=== PATIENT | male | born 1940 | race African-American/Black ===

== ENCOUNTER 2018-02-02 15:02 | Inpatient (IN) ==
[2018-02-02] MEDS ORDERED: MethylPREDNISolone Sod Succinate Inj 125 MG/2 ML Vial IV.PUSH ONE (15:13)
--- NOTE | 2018-02-02 15:16 | ED ---
HPI General Chief complaint: Respiratory Symptoms Stated complaint: asthma/trouble breathing Time Seen by Provider: 02/02/18 15:12 Source: patient Mode of arrival: ambulatory Limitations: no limitations History of Present Illness HPI narrative: 77-year-old male patient with history of COPD presents to the ER today because of shortness of breath and coughing over last few days, chest discomfort which is not going away. He denies any fevers, vomiting, diarrhea, abdominal pains, or other issues. He has been using his nebulizers but is not improving his symptoms. Related Data Home Medications Medication Instructions Recorded Confirmed albuterol sulfate 0.63 mg INHALATION QID PRN 02/02/18 02/02/18 apixaban [Eliquis] mg PO BID 02/02/18 budesonide-formoterol [Symbicort] 2 puff INHALATION BID 02/02/18 02/02/18 codeine-guaifenesin [Cheratussin 10 ml PO Q4-6H 02/02/18 02/02/18 AC] hydrochlorothiazide mg PO DAILY 02/02/18 levofloxacin mg PO DAILY 02/02/18 montelukast [Singulair] 10 mg PO QPM 02/02/18 02/02/18 Allergies Allergy/AdvReac Type Severity Reaction Status Date / Time acetaminophen [From Tylox] Allergy Mild Itching Verified 02/02/18 15:13 oxycodone [From Tylox] Allergy Mild Itching Verified 02/02/18 15:13 Penicillins Allergy Mild rash Verified 02/02/18 15:13 Review of Systems ROS: all other systems reviewed are negative PMFSH History History Provided By: Patient Medical History Medical History Abnormal heart rhythm (Acute) COPD (chronic obstructive pulmonary disease) (Acute) HTN (hypertension) (Acute) Surgical History Surgical History H/O knee surgery (Acute) Previous back surgery (Acute) S/P cholecystectomy (Acute) S/P tonsillectomy and adenoidectomy (Acute) Social History Social History Second Hand Smoke Exposure: No Smoking Status: Never smoker How Often Do You Have a Drink Containing Alcohol: Never Recent Travel in [facility] within the Last 8 Weeks: No Recent Out of Country Travel within the Last 8 Weeks: No Exam Narrative Exam Narrative: GENERAL: Well-developed elderly -[place]er male patient currently in mild respiratory distress. Awake and oriented x3. SKIN: Focused skin assessment warm/dry. HEAD: Atraumatic. Normocephalic. EYES: Pupils equal and round. No scleral icterus. No injection or drainage. ENT: No nasal bleeding or discharge. Mucous membranes pink and moist. NECK: Trachea midline. No JVD. CARDIOVASCULAR: Regular rate and rhythm. No murmur appreciated. RESPIRATORY: Mild bilateral wheezing accessory muscle use. Bilateral wheezing. Breath sounds equal bilaterally. GASTROINTESTINAL: Abdomen soft, non-tender, nondistended. Hepatic and splenic margins not palpable. MUSCULOSKELETAL: No obvious deformities. No clubbing. No cyanosis. No edema. NEUROLOGICAL: Awake and alert. No obvious cranial nerve deficits. Motor grossly within normal limits. Normal speech. PSYCHIATRIC: Appropriate mood and affect; insight and judgment normal. Course Initial Documented Vital Signs Temperature 98.4 F 02/02/18 15:23 Pulse Rate 126 H 02/02/18 15:23 Respiratory Rate 22 02/02/18 15:23 Blood Pressure 167/118 H 02/02/18 15:23 Pulse Oximetry 90 L 02/02/18 15:23 Last Documented Vital Signs Temperature 98.4 F 02/02/18 15:23 Pulse Rate 109 H 02/02/18 15:43 Respiratory Rate 28 H 02/02/18 15:43 Blood Pressure 148/78 H 02/02/18 15:43 Pulse Oximetry 94 L 02/02/18 15:43 Medical Decision Making MDM Narrative Medical decision making narrative: Patient has been on p.o. antibiotics and not improving, chest x-ray showing a left lower lobe pneumonia. He was given Solu- Medrol and nebulizers in the ER with mild improvements in breathing but still is wheezing quite a bit on reevaluation at 4 PM. At this point, additional nebulizers have been ordered. His potassium is low and p.o. potassium was given. Cultures have been drawn. At this point, my plan would be to admit him for further treatment. Case was discussed with Dr. Boyce for admission. Medical Screen Exam Complete: Yes Emergency Medical Condition: Yes Differential Diagnosis Differential Diagnosis: Bronchitis versus COPD exacerbation versus pneumonia Medical Records Medical records reviewed: Yes I reviewed the patient's medical records. Lab Data Lab results reviewed: Yes I reviewed the patient's lab results. Result diagrams: 02/02/18 15:20 02/02/18 15:20 Lab Results 02/02/18 02/02/18 02/02/18 Range/Units 15:20 15:20 15:20 CBC w Diff Auto diff final WBC 9.7 (4.0-11.0) th/mm3 RBC 4.52 (4.50-5.90) mil/mm3 Hgb 13.9 (13.0-17.0) gm/dL Hct 41.7 (39.0-51.0) % MCV 92.3 (80.0-100.0) fL MCH 30.8 (27.0-34.0) pg MCHC 33.4 (32.0-36.0) % RDW 14.6 (11.6-17.2) % Plt Count 258 (150-450) th/mm3 MPV 8.7 (7.0-11.0) fL Neut % (Auto) 63.7 (16.0-70.0) % Lymph % (Auto) 12.3 (9.0-44.0) % [place] % (Auto) 8.9 H (0.0-8.0) % Eos % (Auto) 13.2 H (0.0-4.0) % Baso % (Auto) 1.9 (0.0-2.0) % Neut # (Auto) 6.1 (1.8-7.7) th/mm3 Lymph # (Auto) 1.2 (1.0-4.8) th/mm3 [place] # (Auto) 0.9 (0.0-0.9) th/mm3 Eos # (Auto) 1.3 H (0.0-0.4) th/mm3 Baso # (Auto) 0.2 (0.0-0.2) th/mm3 WBC Differential . Differential Comment . Sodium 141 (136-145) meq/L Potassium 3.0 L (3.5-5.1) meq/L Chloride 102 (98-107) meq/L Carbon Dioxide 29.9 (21.0-32.0) meq/L Anion Gap 9 (5-15) meq/L BUN 15 (7-18) mg/dL Creatinine 1.40 H (0.60-1.30) mg/dL Estimated GFR 49 L (>89) mL/min Random Glucose 110 H (74-106) mg/dL Calcium 9.3 (8.5-10.1) mg/dL Total Bilirubin 0.9 (0.2-1.0) mg/dL AST 32 (15-37) U/L ALT 31 (12-78) U/L Alkaline Phosphatase 93 (45-117) U/L Troponin I 0.03 (0.02-0.05) ng/mL B-Natriuretic Peptide 6 (0-100) pg/mL Total Protein 8.1 (6.4-8.2) g/dL Albumin 3.5 (3.4-5.0) g/dL Imaging Data Attestation: I personally reviewed and interpreted this imaging study as follows : Radiologist's impression: Chest X-Ray 02/02/18 15:13 CONCLUSION: Left basilar airspace disease. Discharge Plan Discharge Disposition Patient Disposition: 30 Still Patient Discharge Condition Condition: Fair Discharge Details Anticipated Discharge Date: 02/02/18 Diagnosis: Pneumonia, COPD exacerbation Physicians Team ED Provider: Emmett Contreras Primary Care Provider: UNKNOWN, Rxs /Orders / Referrals /Forms Prescriptions: No Action albuterol sulfate 0.63 mg/3 mL Solution For Nebulization 0.63 mg INHALATION QID PRN (Reason: SOB) RF: 0 montelukast [Singulair] 10 mg Tablet 10 mg PO QPM RF: 0 codeine-guaifenesin [Cheratussin AC] 10-100 mg/5 mL Liquid 10 ml PO Q4-6H RF: 0 levofloxacin 500 mg Tablet PO DAILY RF: 0 hydrochlorothiazide 12.5 mg Tablet PO DAILY RF: 0 budesonide-formoterol [Symbicort] 160-4.5 mcg/actuation Hfa Aerosol Inhaler 2 puff INHALATION BID RF: 0 apixaban [Eliquis] 5 mg Tablet PO BID RF: 0 Discharge Interventions Interventions: Vital Signs Last Done: 02/02/18 15:43 Status ED Status: With Doctor
[2018-02-02 15:43] LABS: Baso # (Auto) 0.2 th/mm3 (0.0-0.2); Baso % (Auto) 1.9 % (0.0-2.0); Eos # (Auto) 1.3 th/mm3 (0.0-0.4); Eos % (Auto) 13.2 % (0.0-4.0); Hematocrit 41.7 % (39.0-51.0); Hemoglobin 13.9 gm/dL (13.0-17.0); Lymph # (Auto) 1.2 th/mm3 (1.0-4.8); Lymph % (Auto) 12.3 % (9.0-44.0); Mean Corpuscular HGB Conc 33.4 % (32.0-36.0); Mean Corpuscular Hemoglobin 30.8 pg (27.0-34.0); Mean Corpuscular Volume 92.3 fL (80.0-100.0); Mean Platelet Volume 8.7 fL (7.0-11.0); Mono # (Auto) 0.9 th/mm3 (0.0-0.9); Mono % (Auto) 8.9 % (0.0-8.0); Neut # (Auto) 6.1 th/mm3 (1.8-7.7); Neut % (Auto) 63.7 % (16.0-70.0); Platelet Count 258 th/mm3 (150-450); Red Blood Count 4.52 mil/mm3 (4.50-5.90); Red Cell Distribution Width 14.6 % (11.6-17.2); White Blood Count 9.7 th/mm3 (4.0-11.0)
[2018-02-02 15:51] LABS: Chloride 102 meq/L (98-107); Sodium 141 meq/L (136-145)
[2018-02-02 15:54] LABS: Calcium 9.3 mg/dL (8.5-10.1)
[2018-02-02 15:55] LABS: Albumin 3.5 g/dL (3.4-5.0); Anion Gap 9 meq/L (5-15); Blood Urea Nitrogen 15 mg/dL (7-18); Carbon Dioxide 29.9 meq/L (21.0-32.0); Glucose,Random 110 mg/dL (74-106)
[2018-02-02 15:58] LABS: Alanine Aminotransferase 31 U/L (12-78); Aspartate Aminotransferase 32 U/L (15-37); Glomerular Filtration Rate 49 mL/min (>89)
[2018-02-02 16:00] LABS: Total Protein 8.1 g/dL (6.4-8.2)
[2018-02-02 16:01] LABS: Alkaline Phosphatase 93 U/L (45-117)
[2018-02-02 16:03] LABS: Troponin I 0.03 ng/mL (0.02-0.05)
--- NOTE | 2018-02-02 16:09 | XR ---
EXAM DATE: 02/02/2018 3:48 PM EST AGE/SEX: 77 years / Male INDICATIONS: Short of breath, cough, chest pains CLINICAL DATA: This is the patient's initial encounter. Patient reports that signs and symptoms have been present for 1 week and indicates a pain score of 3/10. MEDICAL/SURGICAL HISTORY: None. None. COMPARISON: No prior exams available for comparison. FINDINGS: Focal airspace disease is identified in the left lung base. Right lung is clear. Heart and mediastinal structures are unremarkable. CONCLUSION: Left basilar airspace disease. Electronically signed by: Steven Owusu MD 02/02/2018 4:08 PM EST
[2018-02-02] MEDS ORDERED: Potassium Chloride 25 MEQ Effervescent Tablet PO ONE (16:11)
[2018-02-02] MEDS ORDERED: Azithromycin Inj 500 MG in Sodium Chlor 0.9% Inj 250 ML IV.SIG ONE (16:13)
[2018-02-02] MEDS ORDERED: Potassium Bicarbonate 25 MEQ Effervescent Tablet PO ONE (16:37)
[2018-02-02] MEDS ORDERED: Bisacodyl 10 MG Supp RECTAL PRN (16:43)
[2018-02-02] MEDS ORDERED: Sod Chloride 0.9% Inj 1,000 ML IV.CONT SCH (16:45)
[2018-02-02] MEDS ORDERED: Heparin - SQ 10,000 UNITS/ML Vial SQ SCH (16:45)
[2018-02-02] MEDS: Montelukast 10 MG Tablet PO SCH (18:37)
[2018-02-02] MEDS: Aztreonam Inj 2 GM in Sodium Chloride 0.9% Inj 100 ML IV.SIG SCH (18:37)
[2018-02-02] MEDS: Senna/Docusate Sodium 8.6/50 MG Tablet PO SCH (20:35)
[2018-02-02] MEDS: guaiFENesin 600 MG ER Tablet PO SCH (20:35)
[2018-02-02] MEDS: MethylPREDNISolone Sod Succinate Inj 125 MG/2 ML Vial IV.PUSH SCH (20:36)
[2018-02-02] MEDS: Budesonide-Formoterol 160/4.5 MCG 6 GM Inhaler INH SCH (21:00)
[2018-02-03] MEDS: Aztreonam Inj 2 GM in Sodium Chloride 0.9% Inj 100 ML IV.SIG SCH ×3 (02:31→17:39)
[2018-02-03] MEDS: MethylPREDNISolone Sod Succinate Inj 125 MG/2 ML Vial IV.PUSH SCH ×4 (02:32→22:01)
[2018-02-03 05:56] LABS: Potassium 3.5 meq/L (3.5-5.1)
[2018-02-03 05:58] LABS: Calcium 9.2 mg/dL (8.5-10.1)
[2018-02-03 05:59] LABS: Carbon Dioxide 27.4 meq/L (21.0-32.0)
[2018-02-03] MEDS ORDERED: Azithromycin Inj 250 MG in Sodium Chlor 0.9% Inj 250 ML IV.SIG SCH ×2 (08:00→11:00)
[2018-02-03] MEDS: Benzonatate 100 MG Capsule PO PRN ×2 (09:25→17:48)
[2018-02-03] MEDS: guaiFENesin 600 MG ER Tablet PO SCH ×2 (09:25→22:00)
[2018-02-03] MEDS: Senna/Docusate Sodium 8.6/50 MG Tablet PO SCH ×2 (09:26→22:02)
[2018-02-03] MEDS: Budesonide-Formoterol 160/4.5 MCG 6 GM Inhaler INH SCH ×2 (09:40→22:03)
[2018-02-03 11:17] LABS: Bilirubin,Urine Negative (Negative); Clarity,Urine Clear (Clear); Color,Urine Yellow (Yellw/Straw); Glucose,Urine (UA) Negative (Negative); Leukocyte Esterase,Urine Negative (Negative); Nitrite,Urine Negative (Negative); Specific Gravity,Urine 1.025 (1.002-1.035); Urobilinogen,Urine 0.2 mg/dL (Less than 2)
[2018-02-03 11:26] LABS: Hyaline Casts,Urine 0-2 /lpf (0-3); Squamous Epithelial Cell,Urine 0-5 /hpf (0-5)
--- NOTE | 2018-02-03 12:24 | P.HP ---
History of Present Illness Primary Care Physician: UNKNOWN Chief Complaint: Shortness of breath History of Present Illness: This is a 77-year-old male with a history of asthma, sleep apnea on CPAP, atrial fibrillation on Eliquis and hypertension. Patient presents to the emergency room because of shortness of breath for the past several days which started while he was still in [place]. His pulmonary doctor prescribed Levaquin and symptoms continued to get worse with wheezing, productive cough with whitish phlegm, pleuritic chest pain when he coughs and sore throat. Denies fever, chills, diarrhea and UTI symptoms. Patient allergic to penicillin so was started on aztreonam and azithromycin. Chest x-ray independently reviewed by me shows left base pneumonia. Today patient states he feels better. He is on 3 L nasal cannula. Inpatient Certification: I certify that the inpatient services were ordered in accordance with Medicare regulations governing the order. This includes certification that hospital inpatient services are reasonable and necessary and in the case of services not specified as inpatient-only under 42 CFR 419.22(n), that they are appropriately provided as inpatient services in accordance to with the 2-midnight benchmark under 43 CFR 412.3(e) Estimated Total Length of Stay (Days): 2 Plans for Post Hospital Care: Not yet determined Review of Systems All other systems reviewed negative except as stated [facility] - History History Provided By: Patient - Medical History Medical History: Medical History (Last Reviewed 02/03/18 @ 12:18 by Marques Boyce MD) Abnormal heart rhythm COPD (chronic obstructive pulmonary disease) HTN (hypertension) - Surgical History Surgical History: Surgical History (Last Reviewed 02/03/18 @ 12:18 by Marques Boyce MD) H/O knee surgery Previous back surgery S/P cholecystectomy S/P tonsillectomy and adenoidectomy - Family History Family History: Family History (Last Updated 02/03/18 @ 12:18 by Marques Boyce MD) Other No pertinent family history - Social History I have reviewed the patient's Social History: Yes - Tobacco History Second Hand Smoke Exposure: No Tobacco Use In Past 30 Days: No Smoking Status: Never smoker - Alcohol History How Often Do You Have a Drink Containing Alcohol: Never - Substance Use History Substance History: No History of Abuse - Travel History Recent Travel in the [place] Within the Last 8 Weeks: No Recent Travel Out of the Country Within the Last 8 Weeks: No - Immunization History Tetanus Immunization: Unsure Medications and Allergies Active Medications: Active Medications Albuterol (Duoneb Neb (Olivia)) 1 ampul NEB QID NEB [facility] Last Admin: 02/03/18 11:47 Dose: 1 ampul Albuterol (Albuterol Neb (Prn)) 2.5 mg NEB Q2HR NEB PRN PRN Reason: SHORTNESS OF BREATH Last Admin: 02/02/18 23:30 Dose: 2.5 mg Apixaban (Eliquis) 5 mg PO BID [facility] Last Admin: 02/03/18 09:21 Dose: 5 mg Benzonatate (Tessalon Perles) 200 mg PO Q8H PRN PRN Reason: COUGH Last Admin: 02/03/18 09:25 Dose: 200 mg Bisacodyl (Dulcolax Supp) 10 mg RECTAL DAILY PRN PRN Reason: SEVERE CONSITIPATION Budesonide/Formoterol Fumarate (Symbicort 160/4.5 Mcg Inh) 2 puff INH BID [facility] Last Admin: 02/03/18 09:40 Dose: 2 puff Guaifenesin (Mucinex Er) 600 mg PO BID [facility] Last Admin: 02/03/18 09:25 Dose: 600 mg Aztreonam 2 gm/ Sodium (Chloride) 100 mls @ 200 mls/hr IV.SIG Q8H [facility] Last Infusion: 02/03/18 11:02 Dose: Infused Azithromycin 250 mg/ Sodium (Chloride) 250 mls @ 250 mls/hr IV.SIG Q24H [facility] Last Admin: 02/03/18 11:15 Dose: 250 mls/hr Lactulose (Lactulose Liq) 30 ml PO DAILY PRN PRN Reason: SEVERE CONSITIPATION Methylprednisolone Sodium Succinate (Solumedrol Inj) 60 mg IV.PUSH Q6H [facility] Last Admin: 02/03/18 09:26 Dose: 60 mg Montelukast Sodium (Singulair) 10 mg PO QPM [facility] Last Admin: 02/02/18 18:37 Dose: 10 mg Ondansetron HCl (Zofran Inj) 4 mg IV.PUSH Q6H PRN PRN Reason: NAUSEA OR VOMITING Last Admin: 02/02/18 17:10 Dose: 4 mg Senna/Docusate Sodium (Hodan-Colace) 1 tab PO BID [facility] Last Admin: 02/03/18 09:26 Dose: Not Given Sennosides (Senokot) 17.2 mg PO Q12H PRN PRN Reason: Moderate Constipation Sodium Chloride (Ns Flush) 2 ml IV.FLUSH BID [facility] Last Admin: 02/03/18 09:27 Dose: 2 ml Sodium Chloride (Ns Flush) 2 ml IV.FLUSH PRN PRN PRN Reason: FLUSH AFTER USING IV ACCESS Allergies Allergy/AdvReac Type Severity Reaction Status Date / Time acetaminophen [From Tylox] Allergy Mild Itching Verified 02/02/18 15:13 oxycodone [From Tylox] Allergy Mild Itching Verified 02/02/18 15:13 Penicillins Allergy Mild rash Verified 02/02/18 15:13 Home Medications Medication Instructions Recorded Confirmed Type albuterol sulfate 0.63 mg INHALATION QID PRN 02/02/18 02/02/18 History apixaban [Eliquis] mg PO BID 02/02/18 History budesonide-formoterol [Symbicort] 2 puff INHALATION BID 02/02/18 02/02/18 History codeine-guaifenesin [Cheratussin 10 ml PO Q4-6H 02/02/18 02/02/18 History AC] hydrochlorothiazide mg PO DAILY 02/02/18 History levofloxacin mg PO DAILY 02/02/18 History montelukast [Singulair] 10 mg PO QPM 02/02/18 02/02/18 History Exam Vital signs: Vital Signs 02/02/18 15:23 02/02/18 15:26 02/02/18 15:43 Temperature 98.4 F Pulse Rate 126 H 93 H 109 H Respiratory Rate 22 36 H 28 H Blood Pressure 167/118 H 148/78 H Pulse Oximetry 93 L 97 94 L 02/02/18 16:26 02/02/18 16:58 02/02/18 18:38 Temperature 98 F Pulse Rate 97 H 102 H 92 H Respiratory Rate 28 H 28 H 20 Blood Pressure 143/85 H 129/67 Pulse Oximetry 94 L 97 02/02/18 20:00 02/02/18 20:16 02/02/18 23:30 Temperature 98.7 F Pulse Rate 83 81 69 Respiratory Rate 18 24 20 Blood Pressure 167/78 H Pulse Oximetry 95 96 02/03/18 00:00 02/03/18 04:00 02/03/18 07:25 Temperature 97.5 F L 96.5 F L Pulse Rate 89 74 Respiratory Rate 18 18 Blood Pressure 136/88 144/75 H Pulse Oximetry 98 95 97 02/03/18 07:30 02/03/18 08:00 02/03/18 11:41 Temperature 98.1 F 98.0 F Pulse Rate 110 H 110 H 78 Respiratory Rate 16 22 20 Blood Pressure 147/90 H 165/77 H Pulse Oximetry 92 L 97 02/03/18 11:48 Temperature Pulse Rate 69 Respiratory Rate 16 Blood Pressure Pulse Oximetry Intake & Output 02/02/18 02/03/18 02/03/18 18:59 06:59 18:59 Intake Total 250 / 250 1400 / 1400 100 / 100 Output Total 250 / 250 Balance 250 / 250 1150 / 1150 100 / 100 Weight 110 kg 110.5 kg Intake: IV 250 / 250 1200 / 1200 100 / 100 NS Inj 1,000 ML @ 100 mls/hr IV 1000 / 1000 .CONT .Q10H OLIVIA Rx#:[id number] Azithromycin Inj 500 MG In NS 250 / 250 Inj 250 ML @ 250 mls/hr IV.SIG ONCE ONE Rx#:[id number] Azactam Inj 2 GM In NS Inj 100 200 / 200 100 / 100 ML @ 200 mls/hr IV.SIG Q8H OLIVIA Rx#:[id number] Oral 200 / 200 Output: Urine 250 / 250 Other: Date of Last Bowel Movement 02/02/18 Weight On Admission 110 kg Narrative: GENERAL: Well-developed, well-nourished in no distress on nasal cannula SKIN: Warm and dry. HEAD: Atraumatic. Normocephalic. EYES: Pupils equal and round. No scleral icterus. No injection or drainage. ENT: No nasal bleeding or discharge. Mucous membranes pink and moist. Clear throat NECK: Trachea midline. No JVD. CARDIOVASCULAR: Regular rate and rhythm. RESPIRATORY: No accessory muscle use. Bilateral expiratory wheezes breath sounds equal bilaterally. GASTROINTESTINAL: Abdomen soft, non-tender, nondistended. MUSCULOSKELETAL: Extremities without clubbing, cyanosis, or edema. No obvious deformities. NEUROLOGICAL: Awake and alert. No obvious cranial nerve deficits. Motor grossly within normal limits. Five out of 5 muscle strength in the arms and legs. Normal speech. PSYCHIATRIC: Appropriate mood and affect; insight and judgment normal. Results - Labs CBC & Chem 7: 02/02/18 15:20 02/03/18 04:45 Labs: Laboratory Results - last 24 hr 02/02/18 02/02/18 02/02/18 15:20 15:20 15:20 CBC w Diff Auto diff final WBC 9.7 RBC 4.52 Hgb 13.9 Hct 41.7 MCV 92.3 MCH 30.8 MCHC 33.4 RDW 14.6 Plt Count 258 MPV 8.7 Neut % (Auto) 63.7 Lymph % (Auto) 12.3 [place] % (Auto) 8.9 H Eos % (Auto) 13.2 H Baso % (Auto) 1.9 Neut # (Auto) 6.1 Lymph # (Auto) 1.2 [place] # (Auto) 0.9 Eos # (Auto) 1.3 H Baso # (Auto) 0.2 WBC Differential . Differential Comment . Sodium 141 Potassium 3.0 L Chloride 102 Carbon Dioxide 29.9 Anion Gap 9 BUN 15 Creatinine 1.40 H Estimated GFR 49 L Random Glucose 110 H Calcium 9.3 Magnesium Total Bilirubin 0.9 AST 32 ALT 31 Alkaline Phosphatase 93 Troponin I 0.03 B-Natriuretic Peptide 6 Total Protein 8.1 Albumin 3.5 Ur Collection Type Urine Color Urine Clarity Urine pH Ur Specific [place] Urine Protein Urine Glucose (UA) Urine Ketones Urine Occult Blood Urine Nitrate Urine Bilirubin Urine Urobilinogen Ur Leukocyte Esterase Ur Squamous Epith Cells Hyaline Casts Micro UA Comment Ur Microscopic Review Urine Culture Comments 02/02/18 02/03/18 02/03/18 15:20 04:45 09:15 CBC w Diff WBC RBC Hgb Hct MCV MCH MCHC RDW Plt Count MPV Neut % (Auto) Lymph % (Auto) [place] % (Auto) Eos % (Auto) Baso % (Auto) Neut # (Auto) Lymph # (Auto) [place] # (Auto) Eos # (Auto) Baso # (Auto) WBC Differential Differential Comment Sodium 140 Potassium 3.5 Chloride 103 Carbon Dioxide 27.4 Anion Gap 10 BUN 19 H Creatinine 1.40 H Estimated GFR 60 L Random Glucose 179 H Calcium 9.2 Magnesium 2.1 Total Bilirubin AST ALT Alkaline Phosphatase Troponin I B-Natriuretic Peptide Total Protein Albumin Ur Collection Type Clean catch Urine Color Yellow Urine Clarity Clear Urine pH 6.0 Ur Specific [place] 1.025 Urine Protein Trace Urine Glucose (UA) Negative Urine Ketones Trace H Urine Occult Blood Negative Urine Nitrate Negative Urine Bilirubin Negative Urine Urobilinogen 0.2 Ur Leukocyte Esterase Negative Ur Squamous Epith Cells 0-5 Hyaline Casts 0-2 Micro UA Comment Culture not ind Ur Microscopic Review Microscopic reviewed Urine Culture Comments Culture not ind - Imaging Impressions Chest X-Ray 02/02/18 15:13 CONCLUSION: Left basilar airspace disease. Caprini VTE Risk Assessment Caprini VTE Risk Assessment: Moderate/High Risk (score >= 2) Caprini Risk Assessment Model: Point Value = 1 Point Value = 2 Point Value = 3 Point Value = 5 Age 41-60 Minor surgery BMI > 25 kg/m2 Swollen legs Varicose veins or History of unexplained or recurrent spontaneous Oral contraceptives or hormone replacement Sepsis (< 1 month) Serious lung disease, including pneumonia (< 1 month) Abnormal pulmonary function Acute myocardial infarction Congestive heart failure (< 1 month) History of inflammatory bowel disease Medical patient at bed rest Age 61-74 Arthroscopic surgery Major open surgery (> 45 min) Laparoscopic surgery (> 45 min) Malignancy Confined to bed (> 72 hours) Immobilizing plaster cast Central venous access Age >= 75 History of VTE Family history of VTE Factor V Leiden Prothrombin [id number] Lupus anticoagulant Anticardiolipin antibodies Elevated serum homocysteine Heparin-induced thrombocytopenia Other congenital or acquired thrombophilia Stroke (< 1 month) Elective arthroplasty Hip, pelvis, or leg fracture Acute spinal cord injury (< 1 month) Prophylaxis Regimen: Total Risk Factor Score Risk Level Prophylaxis Regimen 0-1 Low Early ambulation 2 Moderate Order ONE of the following: *Sequential Compression Device (SCD) *Heparin 5000 units SQ BID 3-4 Higher Order ONE of the following medications: *Heparin 5000 units SQ TID *Enoxaparin/Lovenox 40 mg SQ daily (WT < 150 kg, CrCl > 30 mL/min) *Enoxaparin/Lovenox 30 mg SQ daily (WT < 150 kg, CrCl > 10-29 mL/min) *Enoxaparin/Lovenox 30 mg SQ BID (WT < 150 kg, CrCl > 30 mL/min) AND/OR *Sequential Compression Device (SCD) 5 or more Highest Order ONE of the following medications: *Heparin 5000 units SQ TID (Preferred with Epidurals) *Enoxaparin/Lovenox 40 mg SQ daily (WT < 150 kg, CrCl > 30 mL/min) *Enoxaparin/Lovenox 30 mg SQ daily (WT < 150 kg, CrCl > 10-29 mL/min) *Enoxaparin/Lovenox 30 mg SQ BID (WT < 150 kg, CrCl > 30 mL/min) AND *Sequential Compression Device (SCD) Assessment and Plan - Plan This is a 77-year-old male with a history of asthma, sleep apnea on CPAP, atrial fibrillation on Eliquis and hypertension. He presents with shortness of breath with wheezing, productive cough, pleuritic chest pain and sore throat. He has been taking Levaquin prior to admission. Chest x-ray shows left base pneumonia. He is allergic to penicillin Pneumonia with failed outpatient therapy. He has sepsis. Continue aztreonam and Zithromax. Follow-up cultures. Repeat chest x-ray in 6 weeks Asthma exacerbation. Still actively wheezing but not in distress. Continue nebulization, IV steroids and oxygen to keep saturation at least 92%. Increase activity Acute kidney injury with hypokalemia. Urinalysis unremarkable. Potassium has been replaced. There is no acidosis. Patient already received IV hydration overnight. Continue to hold hydrochlorothiazide and repeat BMP in the morning DVT prophylaxis with SCD and Eliquis Discharge Planning: Discharge when clinically improved may be in 1-2-day
[2018-02-03 13:31] LABS: CKMB Percent 1.5 % (0.0-4.0); Creatine Kinase MB 6.2 ng/mL (0.5-3.6)
[2018-02-03] MEDS: Montelukast 10 MG Tablet PO SCH (17:48)
--- NOTE | 2018-02-03 21:28 | ECG ---
Date Performed: 02/02/2018 Time Performed: 16:47:18 PTAGE: 77 years EKG: ATRIAL FIBRILLATION WITH RAPID VENTRICULAR RESPONSE NONSPECIFIC ST & T-WAVE ABNORMALITY ABN ORMAL RHYTHM ECG NO PREVIOUS TRACING DOCTOR: Tawanna Lawrence Interpretating Date/Time 02/03/2018 21:26:07
[2018-02-04] MEDS: MethylPREDNISolone Sod Succinate Inj 125 MG/2 ML Vial IV.PUSH SCH ×2 (02:45→08:28)
[2018-02-04] MEDS: Aztreonam Inj 2 GM in Sodium Chloride 0.9% Inj 100 ML IV.SIG SCH ×2 (02:46→10:36)
[2018-02-04] MEDS: Benzonatate 100 MG Capsule PO PRN (03:17)
[2018-02-04 06:59] LABS: Potassium 3.4 meq/L (3.5-5.1)
--- NOTE | 2018-02-04 08:08 | P.PN ---
Subjective Interval history: Follow up for pneumonia. Patient is currently resting in bed. No fever, chills. Overall, he feels better but continues to have significant cough. He is currently on room air. Tolerating diet well. Physical Exam Vital signs: Vital Signs 02/03/18 10:19 02/03/18 11:41 02/03/18 11:48 Temperature 98.0 F Pulse Rate 80 78 69 Respiratory Rate 20 16 Blood Pressure 165/77 H Pulse Oximetry 97 02/03/18 12:00 02/03/18 15:58 02/03/18 16:00 Temperature 97.7 F Pulse Rate 70 69 72 Respiratory Rate 15 20 Blood Pressure 124/75 Pulse Oximetry 98 02/03/18 20:00 02/03/18 20:05 02/03/18 22:50 Temperature 97.7 F Pulse Rate 77 97 H 76 Respiratory Rate 18 22 18 Blood Pressure 152/70 H Pulse Oximetry 95 97 02/04/18 00:00 02/04/18 03:45 02/04/18 04:00 Temperature 97.2 F L 96.5 F L Pulse Rate 96 H 71 72 Respiratory Rate 18 22 18 Blood Pressure 147/73 H 145/72 H Pulse Oximetry 94 L 97 02/04/18 07:19 Temperature Pulse Rate 79 Respiratory Rate 20 Blood Pressure Pulse Oximetry 91 L Intake & Output 02/03/18 02/04/18 02/04/18 18:59 06:59 18:59 Intake Total 450 / 450 350 / 350 Output Total 650 / 650 Balance 450 / 450 -300 / -300 Weight 114.1 kg Intake: IV 450 / 450 100 / 100 Azithromycin Inj 250 MG In NS 250 / 250 Inj 250 ML @ 250 mls/hr IV.SIG Q24H ABHIJIT Rx#:[id number] Azactam Inj 2 GM In NS Inj 100 200 / 200 100 / 100 ML @ 200 mls/hr IV.SIG Q8H ABHIJIT Rx#:[id number] Oral 250 / 250 Output: Urine 650 / 650 Other: # Voids 4 # Bowel Movements 3 Narrative: GENERAL: Alert, NAD. SKIN: Warm and dry. HEAD: Normocephalic. EYES: No scleral icterus. No injection or drainage. NECK: Supple, trachea midline. No JVD or lymphadenopathy. CARDIOVASCULAR: Regular rate and rhythm without murmurs, gallops, or rubs. RESPIRATORY: Moderate air entry, diffusely coarse breath sound throughout the posterior lung espino with minor wheezing. GASTROINTESTINAL: Abdomen soft, non-tender, nondistended. MUSCULOSKELETAL: No cyanosis, or edema. BACK: Nontender without obvious deformity. No CVA tenderness. Results - Labs CBC & Chem 7: 02/02/18 15:20 02/04/18 05:18 Laboratory Results - last 24 hr 02/03/18 02/03/18 02/04/18 04:45 09:15 05:18 Sodium 141 Potassium 3.4 L Chloride 103 Carbon Dioxide 29.0 Anion Gap 9 BUN 21 H Creatinine 1.20 Estimated GFR 72 L Random Glucose 155 H Calcium 9.0 Total Creatine Kinase 422 H CK-MB (CK-2) 6.2 H CK-MB (CK-2) % 1.5 Ur Collection Type Clean catch Urine Color Yellow Urine Clarity Clear Urine pH 6.0 Ur Specific [place] 1.025 Urine Protein Trace Urine Glucose (UA) Negative Urine Ketones Trace H Urine Occult Blood Negative Urine Nitrate Negative Urine Bilirubin Negative Urine Urobilinogen 0.2 Ur Leukocyte Esterase Negative Ur Squamous Epith Cells 0-5 Hyaline Casts 0-2 Micro UA Comment Culture not ind Ur Microscopic Review Microscopic reviewed Urine Culture Comments Culture not ind Microbiology 02/03/18 09:15 Urine - Clean Catch Urine Streptococcus pneumoniae Antigen ( M - Final Presumptive negative for streptococcus pneumoniae antigen, suggesting no current or recent infection. Infection due to Streptococcus pneumoniae cannot be ruled out since the antigen present in the sample may be below the detection limit of the test. 02/03/18 09:15 Urine - Clean Catch Urine Legionella Antigen - Final Presumptive negative for Legionella pneumophila serogroup 1 antigen in urine, suggesting no recent or recurrent infection. Infection due to Legionella cannot be ruled out since other serogroups and species may cause disease, antigen may not be present in urine in early infection, and the level of antigen present in the urine may be below the detection limit of the test. 02/02/18 16:50 Blood - Peripheral Aerobic Blood Culture - Preliminary No growth in 1 day 02/02/18 16:50 Blood - Peripheral Anaerobic Blood Culture - Preliminary No growth in 1 day 02/02/18 16:55 Blood - Peripheral Aerobic Blood Culture - Preliminary No growth in 1 day 02/02/18 16:55 Blood - Peripheral Anaerobic Blood Culture - Preliminary No growth in 1 day - Imaging Chest X-Ray 02/02/18 15:13 CONCLUSION: Left basilar airspace disease. Assessment and Plan - Plan Mr. Mccray is a pleasant 77-year-old -Citizen Of [place] male from [place] with a history of asthma, sleep apnea on CPAP, atrial fibrillation, hypertension who was admitted to the hospital due to dyspnea on 02/03/2018. He was treated in the outpatient setting with Levaquin for possible pneumonia. However his symptoms did not improve which prompted him to seek medical attention at [place] emergency department. Upon admission he was started on aztreonam and azithromycin. Chest x-ray showed left basilar pneumonia. Community Acquired Pneumonia Failed outpatient therapy with Levaquin. Continue aztreonam and azithromycin but increase azithromycin to 500 mg daily. Patient is currently on room air. Walk test reveals his O2 saturation was above 91%. Due to physical finding of diffuse coarse breath sound, will obtain CT chest with IV contrast. Discontinue Solu-Medrol and start prednisone 20 mg twice daily. Discontinue albuterol nebulizer treatment and start DuoNeb scheduled and as needed. Acute kidney injury Hypokalemia Creatinine improved to 1.22. Potassium replaced. Magnesium 2.1. History of atrial fibrillation - rate controlled. Currently on Apixaban. Full code. Apixaban. Discharge plan: Possible d/c this afternoon or tomorrow.
[2018-02-04] MEDS: guaiFENesin 600 MG ER Tablet PO SCH (08:28)
[2018-02-04] MEDS: Budesonide-Formoterol 160/4.5 MCG 6 GM Inhaler INH SCH (08:29)
[2018-02-04] MEDS: Senna/Docusate Sodium 8.6/50 MG Tablet PO SCH (08:36)
[2018-02-04] MEDS ORDERED: Azithromycin 250 MG Tablet PO SCH (09:00)
--- NOTE | 2018-02-04 09:18 | CT ---
EXAM DATE: 02/04/2018 9:07 AM EST AGE/SEX: 77 years / Male INDICATIONS: Pneumonia. Cough. Previous exposure to asbestos. Abnormal chest x-ray with focal airspa ce disease in the left lung base. CLINICAL DATA: This is the patient's initial encounter. Patient reports that signs and symptoms have been present for 1 week and indicates a pain score of 0/10. MEDICAL/SURGICAL HISTORY: Chronic obstructive pulmonary disease. Hypertension. Cholecystectomy. T onsillectomy. Knee surgery. Back surgery. RADIATION DOSE: 23.49 CTDI (mGy) ; Patient body habitus COMPARISON: [facility], CHEST 1V SINGLE AP, 02/02/2018. . TECHNIQUE: Multiple contiguous axial images were obtained through the chest during bolus infusion of 65 ml Omnipaque 350 (iohexol) nonionic water-soluble contrast as a single exam dose. Images were obtained in suspended respiration using multiple row detector helical technique. Using automated exp osure control and adjustment of the mA and/or kV according to patient size, radiation dose was kept a s low as reasonably achievable to obtain optimal diagnostic quality images. DICOM format image data is available electronically for review and comparison. FINDINGS: Lungs: There is mild elevation of the left hemidiaphragm. There is consolidation in the posterior le ft lower lobe with several air bronchograms. The right lung is except for minimal scarring or atelect asis in the posterior lung base. Mediastinum: There is good visualization of the great vessels of the middle mediastinum. No evidenc e of mediastinal or hilar adenopathy/mass. Coronary artery calcifications are present. There is no pe ricardial effusion. Pleurae: No evidence of focal thickening or pleural effusion. Axillae: Unremarkable. Bony Structures: Unremarkable. Miscellaneous: The examination was extended to include the upper abdomen, and visualized portions of the adrenal glands are normal in size and configuration. There is a small low-attenuation lesion in the right lobe of the liver too small to categorize but likely represents a small cyst or cavernous h emangioma. CONCLUSION: 1. Mild elevation of the left hemidiaphragm with mild consolidation in the posterior left lower lobe which could represent pneumonia. 2. Coronary artery calcifications. 3. Small low-attenuation lesion in the right lobe of the liver too small to characterize but likely represents a small cyst or cavernous hemangioma. Electronically signed by: Parveen Francis MD 02/04/2018 9:16 AM EST
[2018-02-04] MEDS ORDERED: predniSONE 20 MG Tablet PO SCH (09:30)
== END 2018-02-04 13:30 | disposition home or self-care (01) ==
LOC: PHED 15:02 → PHEDA 16:21 → PH3 17:43
PROVIDERS: ADMIT Hospitalist; ATTEND Hospitalist

== ENCOUNTER 2018-03-26 19:17 | Observation (INO) ==
[2018-03-26] MEDS ORDERED: MethylPREDNISolone Sod Succinate Inj 125 MG/2 ML Vial IV.PUSH ONE (19:25)
--- NOTE | 2018-03-26 19:29 | ED ---
HPI General Chief Complaint: Shortness of Breath/Dyspnea Stated Complaint: SOB Time Seen by Provider: 03/26/18 19:24 Source: patient and family () Mode of arrival: ambulatory Limitations: no limitations History of Present Illness MD Complaint: Reports shortness of breath, cough and "asthma attack"; Denies pain with inspiration and chest pain Onset (ago): hour(s) Context: Reports recent travel (here since December from [place]); Denies recent illness, occurred during exertion, choking/aspiration, medication noncompliance and allergen exposure Severity: moderate Consistency/Duration: constant Relieving factors: nothing Exacerbating factors: exertion, movement, coughing and talking Known history of: Reports COPD and asthma; Denies congestive heart failure, diabetes, recurrent pneumonia (recent admission [facility] 02/02/18 for exacerbation COPD and pneumonia), aspiration pneumonia, HIV, PE, DVT and IVDU Associated symptoms: Reports cough and wheezing; Denies chest pain, pain with inspiration, fever, sputum production, orthopnea, lower extremity pain, polyuria , polydipsia, paresthesias, palpitations, carpopedal spasm, hemoptysis, diaphoresis, nausea/vomiting, syncope, abdominal pain, rash, sense of impending doom, chest congestion, dizziness and lightheadedness Treatment prior to arrival: Reports none Related Data Home oxygen amount: none Home Medications Medication Instructions Recorded Confirmed albuterol sulfate 0.63 mg INHALATION QID PRN 02/02/18 03/26/18 apixaban [Eliquis] 5 mg PO BID 02/02/18 03/26/18 budesonide-formoterol [Symbicort] 2 puff INHALATION BID 02/02/18 03/26/18 Allergies Allergy/AdvReac Type Severity Reaction Status Date / Time acetaminophen [From Tylox] Allergy Mild Itching Verified 03/26/18 19:44 oxycodone [From Tylox] Allergy Mild Itching Verified 03/26/18 19:44 Penicillins Allergy Mild rash Verified 03/26/18 19:44 Review of Systems ROS: all other systems reviewed are negative [facility] Medical History Medical History Abnormal heart rhythm (Acute) COPD (chronic obstructive pulmonary disease) (Acute) HTN (hypertension) (Acute) Surgical History Surgical History H/O knee surgery (Acute) Previous back surgery (Acute) S/P cholecystectomy (Acute) S/P tonsillectomy and adenoidectomy (Acute) Family History Family History Other No pertinent family history Social History Social History Substance History: No History of Abuse Second Hand Smoke Exposure: No Smoking Status: Never smoker How Often Do You Have a Drink Containing Alcohol: Never Recent Out of Country Travel within the Last 8 Weeks: No Exam Narrative Exam Narrative: GENERAL: Well-nourished, well-developed patient. SKIN: Focused skin assessment warm/dry. HEAD: Normocephalic. EYES: No scleral icterus. No injection or drainage. NECK: Supple, trachea midline. No JVD or lymphadenopathy. CARDIOVASCULAR: Regular rate and rhythm without murmurs, gallops, or rubs. RESPIRATORY: Breath sounds equal bilaterally no rhonchi with few expiratory wheezes. No accessory muscle use. GASTROINTESTINAL: Abdomen soft, non-tender, nondistended. MUSCULOSKELETAL: No cyanosis, or edema (B)lower leg and pedal edema 1+. BACK: Nontender without obvious deformity. No CVA tenderness. Course Initial Documented Vital Signs Temperature 98.4 F 03/26/18 19:20 Pulse Rate 73 03/26/18 19:20 Respiratory Rate 26 H 03/26/18 19:20 Blood Pressure 171/100 H 03/26/18 19:20 Pulse Oximetry 93 L 03/26/18 19:20 Last Documented Vital Signs Temperature 98.4 F 03/26/18 19:20 Pulse Rate 79 03/27/18 00:04 Respiratory Rate 20 03/26/18 23:19 Blood Pressure 158/74 H 03/27/18 00:04 Pulse Oximetry 98 03/26/18 20:11 Medical Decision Making MDM Narrative Medical decision making narrative: 77-year-old male presents with shortness of breath over the past several hours placed on environmental monitoring specialist with continuous pulse oximetry IV access obtained specimens collected and sent for resulting patient administered DuoNeb updraft x3 along with administration of Solu-Medrol. Patient some better after DuoNeb updrafts however patient continues to have work of breathing and wheezing and trial of exertion patient D compensates with desaturation to 87% therefore patient be admitted for exacerbation of COPD bronchitis. Patient's case discussed with medicine service for admission to Dr. Contreras service as observation. Medical Screen Exam Complete: Yes Emergency Medical Condition: Yes Medical Records Medical records reviewed: Yes I reviewed the patient's medical records. Lab Data Result diagrams: 03/26/18 19:38 03/26/18 19:38 Lab Results 03/26/18 03/26/18 03/26/18 Range/Units 19:38 19:38 19:38 CBC w Diff Auto diff final WBC 6.4 (4.0-11.0) th/mm3 RBC 4.06 L (4.50-5.90) mil/mm3 Hgb 12.5 L (13.0-17.0) gm/dL Hct 38.2 L (39.0-51.0) % MCV 94.0 (80.0-100.0) fL MCH 30.7 (27.0-34.0) pg MCHC 32.6 (32.0-36.0) % RDW 14.6 (11.6-17.2) % Plt Count 215 (150-450) th/mm3 MPV 9.0 (7.0-11.0) fL Neut % (Auto) 56.3 (16.0-70.0) % Lymph % (Auto) 21.9 (9.0-44.0) % [place] % (Auto) 7.6 (0.0-8.0) % Eos % (Auto) 12.1 H (0.0-4.0) % Baso % (Auto) 2.1 H (0.0-2.0) % Neut # (Auto) 3.6 (1.8-7.7) th/mm3 Lymph # (Auto) 1.4 (1.0-4.8) th/mm3 [place] # (Auto) 0.5 (0.0-0.9) th/mm3 Eos # (Auto) 0.8 H (0.0-0.4) th/mm3 Baso # (Auto) 0.1 (0.0-0.2) th/mm3 WBC Differential . Differential Comment . Sodium 143 (136-145) meq/L Potassium 4.3 (3.5-5.1) meq/L Chloride 109 H (98-107) meq/L Carbon Dioxide 27.0 (21.0-32.0) meq/L Anion Gap 7 (5-15) meq/L BUN 13 (7-18) mg/dL Creatinine 2.10 H (0.60-1.30) mg/dL Estimated GFR 38 L (>89) mL/min Random Glucose 108 H (74-106) mg/dL Calcium 8.7 (8.5-10.1) mg/dL Total Bilirubin 0.4 (0.2-1.0) mg/dL AST 42 H (15-37) U/L ALT 31 (12-78) U/L Alkaline Phosphatase 74 (45-117) U/L Troponin I Less than 0.02 L (0.02-0.05) ng/mL B-Natriuretic Peptide 152 H (0-100) pg/mL Total Protein 7.1 (6.4-8.2) g/dL Albumin 3.1 L (3.4-5.0) g/dL Imaging Data Radiologist's impression: Chest X-Ray 03/26/18 19:24 CONCLUSION: The lungs are clear. Interval resolution of left lower lung infiltrate. ECG Data EKG Prior to Arrival: No Attestation: I personally reviewed and interpreted this ECG as follows: (EKG: Atrial fibrillation flutter with controlled ventricular rate no acute ST elevation injury pattern or ectopy noted) Discharge Plan Discharge Disposition Patient Disposition: ED Admit(ED Internal Use Only) Discharge Condition Condition: Stable Discharge Order Discharge Orders: ED Use Only Admit Order (Routine); Ordered 03/26/18 Ordered By: Sherly Contreras Discharge Details Diagnosis: COPD exacerbation Physicians Team ED Provider: Sherly Contreras Primary Care Provider: UNKNOWN, Attending Provider: Rosemary Contreras Discharge Interventions Interventions: Vital Signs Last Done: 03/27/18 00:04 ED Discharge Assessment Last Done: 03/26/18 23:49 Status ED Status: Admitted Observation Patient
[2018-03-26 19:54] LABS: Baso # (Auto) 0.1 th/mm3 (0.0-0.2); Baso % (Auto) 2.1 % (0.0-2.0); Eos # (Auto) 0.8 th/mm3 (0.0-0.4); Eos % (Auto) 12.1 % (0.0-4.0); Hematocrit 38.2 % (39.0-51.0); Hemoglobin 12.5 gm/dL (13.0-17.0); Lymph # (Auto) 1.4 th/mm3 (1.0-4.8); Lymph % (Auto) 21.9 % (9.0-44.0); Mean Corpuscular HGB Conc 32.6 % (32.0-36.0); Mean Corpuscular Hemoglobin 30.7 pg (27.0-34.0); Mono # (Auto) 0.5 th/mm3 (0.0-0.9); Mono % (Auto) 7.6 % (0.0-8.0); Neut # (Auto) 3.6 th/mm3 (1.8-7.7); Neut % (Auto) 56.3 % (16.0-70.0); Platelet Count 215 th/mm3 (150-450); Red Blood Count 4.06 mil/mm3 (4.50-5.90); Red Cell Distribution Width 14.6 % (11.6-17.2); White Blood Count 6.4 th/mm3 (4.0-11.0)
--- NOTE | 2018-03-26 19:54 | XR ---
EXAM DATE: 03/26/2018 7:50 PM EST AGE/SEX: 77 years / Male INDICATIONS: Short of breath. CLINICAL DATA: This is the patient's initial encounter. Patient reports that signs and symptoms have been present for 1 day and indicates a pain score of 0/10. MEDICAL/SURGICAL HISTORY: . Chronic obstructive pulmonary disease. Hypertension. . Cholecystec kaitlyn. Tonsillectomy. Knee surgery. Back surgery. COMPARISON: [facility], CHEST 1V SINGLE AP, 02/02/2018. . FINDINGS: The lungs are symmetrically aerated and clear. Stable elevation left hemidiaphragm. No infiltrates se en. The heart is upper limits normal size, stable from prior. The central bronchopulmonary markings a re well delineated. CONCLUSION: The lungs are clear. Interval resolution of left lower lung infiltrate. Electronically signed by: Luis Coleman MD Board Certified Radiologist 03/26/2018 7:52 PM EST
[2018-03-26 20:07] LABS: Chloride 109 meq/L (98-107); Potassium 4.3 meq/L (3.5-5.1); Sodium 143 meq/L (136-145)
[2018-03-26 20:11] LABS: Albumin 3.1 g/dL (3.4-5.0); Anion Gap 7 meq/L (5-15); Calcium 8.7 mg/dL (8.5-10.1)
[2018-03-26 20:12] LABS: Blood Urea Nitrogen 13 mg/dL (7-18); Glucose,Random 108 mg/dL (74-106)
[2018-03-26 20:15] LABS: Alanine Aminotransferase 31 U/L (12-78); Aspartate Aminotransferase 42 U/L (15-37); Glomerular Filtration Rate 38 mL/min (>89)
[2018-03-26 20:16] LABS: Total Protein 7.1 g/dL (6.4-8.2)
[2018-03-26 20:17] LABS: Alkaline Phosphatase 74 U/L (45-117)
[2018-03-26] MEDS ORDERED: Bisacodyl 10 MG Supp RECTAL PRN (23:26)
[2018-03-27] MEDS: MethylPREDNISolone Sod Succinate Inj 40 MG/ML Vial IV.PUSH SCH ×4 (01:26→17:37)
[2018-03-27] MEDS: Sod Chloride 0.9% Inj 1,000 ML IV.CONT SCH ×3 (01:28→21:53)
[2018-03-27] MEDS: Budesonide-Formoterol 160/4.5 MCG 6 GM Inhaler INH SCH ×2 (08:16→21:52)
--- NOTE | 2018-03-27 08:17 | ECG ---
Date Performed: 03/26/2018 Time Performed: 19:28:02 PTAGE: 77 years EKG: Atrial Fibrillation Nonspecific ST-T wave changes. PREVIOUS TRACING : 02/02/2018 16.47 Since the previous tracing, no significant change not ed DOCTOR: Petra Neal Interpretating Date/Time 03/27/2018 08:16:13
[2018-03-27 09:21] LABS: Baso % (Auto) 0.1 % (0.0-2.0); Hematocrit 39.1 % (39.0-51.0); Hemoglobin 12.6 gm/dL (13.0-17.0); Lymph # (Auto) 0.5 th/mm3 (1.0-4.8); Lymph % (Auto) 6.6 % (9.0-44.0); Mean Corpuscular HGB Conc 32.2 % (32.0-36.0); Mean Corpuscular Hemoglobin 30.4 pg (27.0-34.0); Mean Corpuscular Volume 94.2 fL (80.0-100.0); Mean Platelet Volume 8.8 fL (7.0-11.0); Mono % (Auto) 0.3 % (0.0-8.0); Neut # (Auto) 7.2 th/mm3 (1.8-7.7); Platelet Count 210 th/mm3 (150-450); Red Blood Count 4.15 mil/mm3 (4.50-5.90); Red Cell Distribution Width 14.9 % (11.6-17.2); White Blood Count 7.8 th/mm3 (4.0-11.0)
[2018-03-27 09:56] LABS: Chloride 107 meq/L (98-107); Potassium 3.9 meq/L (3.5-5.1); Sodium 143 meq/L (136-145)
[2018-03-27 10:03] LABS: Calcium 9.2 mg/dL (8.5-10.1)
[2018-03-27 10:04] LABS: Albumin 3.2 g/dL (3.4-5.0); Anion Gap 7 meq/L (5-15); Carbon Dioxide 28.9 meq/L (21.0-32.0); Glucose,Random 162 mg/dL (74-106)
[2018-03-27 10:05] LABS: Blood Urea Nitrogen 17 mg/dL (7-18)
[2018-03-27 10:07] LABS: Alanine Aminotransferase 27 U/L (12-78); Aspartate Aminotransferase 26 U/L (15-37); Glomerular Filtration Rate 55 mL/min (>89)
[2018-03-27 10:08] LABS: Total Protein 7.3 g/dL (6.4-8.2)
[2018-03-27 10:09] LABS: Alkaline Phosphatase 67 U/L (45-117)
--- NOTE | 2018-03-27 10:20 | P.HPIM ---
History of Present Illness Primary Care Physician: UNKNOWN Chief Complaint: Shortness of breath History of Present Illness: Patient is a very pleasant 77-year-old male with past medical history of COPD, congestive heart failure, diabetes, recurrent pneumonia recent admission, HIV, PE and DVT, history of IV drug use. The patient complained of cough or wheezing. He denies chest pain, fever sputum production, palpitations diaphoresis. No nausea or vomiting. Denies abdominal pain. No urinary complaints. Patient also has noted his low more swollen than usual. Not coughing much however feels his leg is congested. Review of Systems Review of Systems: all other systems reviewed are negative [facility] Medical History Medical History Asthma (Acute) Bronchitis (Acute) Abnormal heart rhythm (Acute) COPD (chronic obstructive pulmonary disease) (Acute) HTN (hypertension) (Acute) Surgical History Surgical History H/O knee surgery (Acute) Previous back surgery (Acute) S/P cholecystectomy (Acute) S/P tonsillectomy and adenoidectomy (Acute) Family History Family History Other No pertinent family history Social History Social History Substance History: No History of Abuse Second Hand Smoke Exposure: No Smoking Status: Never smoker How Often Do You Have a Drink Containing Alcohol: Never Recent Out of Country Travel within the Last 8 Weeks: No Immunization History Tetanus Immunization: Unsure Medications and Allergies Allergies Allergy/AdvReac Type Severity Reaction Status Date / Time acetaminophen [From Tylox] Allergy Mild Itching Verified 03/26/18 19:44 oxycodone [From Tylox] Allergy Mild Itching Verified 03/26/18 19:44 Penicillins Allergy Mild rash Verified 03/26/18 19:44 Home Medications Medication Instructions Recorded Confirmed Type albuterol sulfate 0.63 mg INHALATION QID PRN 02/02/18 03/26/18 History apixaban [Eliquis] 5 mg PO BID 02/02/18 03/26/18 History budesonide-formoterol [Symbicort] 2 puff INHALATION BID 02/02/18 03/26/18 History Active Medications: Active Medications Albuterol (Duoneb Neb (Olivia)) 1 ampul NEB Q6HR NEB [facility] Last Admin: 03/27/18 10:01 Dose: 1 ampul Albuterol (Duoneb Neb (Prn)) 1 ampul NEB Q2HR NEB PRN PRN Reason: SHORTNESS OF BREATH/WHEEZING Last Admin: 03/27/18 07:53 Dose: 1 ampul Apixaban (Eliquis) 5 mg PO BID [facility] Last Admin: 03/27/18 08:15 Dose: 5 mg Bisacodyl (Dulcolax Supp) 10 mg RECTAL DAILY PRN PRN Reason: SEVERE CONSITIPATION Budesonide/Formoterol Fumarate (Symbicort 160/4.5 Mcg Inh) 2 puff INH BID [facility] Last Admin: 03/27/18 08:16 Dose: Not Given Sodium Chloride (Ns Inj) 1,000 mls @ 100 mls/hr IV.CONT .Q10H [facility] Last Admin: 03/27/18 01:28 Dose: 100 mls/hr Lactulose (Lactulose Liq) 30 ml PO DAILY PRN PRN Reason: SEVERE CONSITIPATION Methylprednisolone Sodium Succinate (Solumedrol Inj) 40 mg IV.PUSH Q6H [facility] Last Admin: 03/27/18 07:32 Dose: 40 mg Ondansetron HCl (Zofran Inj) 4 mg IV.PUSH Q6H PRN PRN Reason: NAUSEA OR VOMITING Sennosides (Senokot) 17.2 mg PO Q12H PRN PRN Reason: Moderate Constipation Sodium Chloride (Ns Flush) 2 ml IV.FLUSH BID [facility] Last Admin: 03/27/18 08:16 Dose: Not Given Sodium Chloride (Ns Flush) 2 ml IV.FLUSH PRN PRN PRN Reason: FLUSH AFTER USING IV ACCESS Physical Exam Vital signs: Last Vital Signs Temp 98.9 F 03/27/18 09:02 Pulse 85 03/27/18 10:04 Resp 20 03/27/18 10:04 BP 160/92 H 03/27/18 09:02 Pulse Ox 97 03/27/18 10:04 Intake & Output 03/25/18 03/26/18 03/27/18 03/28/18 06:59 06:59 06:59 06:59 Intake Total 480 / 480 Balance 480 / 480 Weight 121 kg Narrative: GENERAL: Pleasant 77-year-old male, obese, with some shortness of breath. SKIN: Warm and dry. HEAD: Atraumatic. Normocephalic. EYES: Pupils equal and round. No scleral icterus. No injection or drainage. ENT: No nasal bleeding or discharge. Mucous membranes pink and moist. NECK: Trachea midline. No JVD. CARDIOVASCULAR: Irregular rate and rhythm. RESPIRATORY: No accessory muscle use. Decreased breath sounds bilaterally. Scattered wheezing GASTROINTESTINAL: Abdomen soft, non-tender, nondistended. Hepatic and splenic margins not palpable. MUSCULOSKELETAL: Extremities without clubbing, cyanosis. Bilateral plus lower extremity edema. NEUROLOGICAL: Awake and alert. No obvious cranial nerve deficits. Motor grossly within normal limits. Five out of 5 muscle strength in the arms and legs. Normal speech. PSYCHIATRIC: Appropriate mood and affect; insight and judgment normal. Results Labs CBC & Chem 7: 03/27/18 08:50 03/27/18 08:50 Imaging Impressions Chest X-Ray 03/26/18 19:24 CONCLUSION: The lungs are clear. Interval resolution of left lower lung infiltrate. Caprini VTE Risk Assessment Caprini VTE Risk Assessment: Moderate/High Risk (score >= 2) Caprini Risk Assessment Model: Point Value = 1 Point Value = 2 Point Value = 3 Point Value = 5 Age 41-60 Minor surgery BMI > 25 kg/m2 Swollen legs Varicose veins or History of unexplained or recurrent spontaneous Oral contraceptives or hormone replacement Sepsis (< 1 month) Serious lung disease, including pneumonia (< 1 month) Abnormal pulmonary function Acute myocardial infarction Congestive heart failure (< 1 month) History of inflammatory bowel disease Medical patient at bed rest Age 61-74 Arthroscopic surgery Major open surgery (> 45 min) Laparoscopic surgery (> 45 min) Malignancy Confined to bed (> 72 hours) Immobilizing plaster cast Central venous access Age >= 75 History of VTE Family history of VTE Factor V Leiden Prothrombin [id number] Lupus anticoagulant Anticardiolipin antibodies Elevated serum homocysteine Heparin-induced thrombocytopenia Other congenital or acquired thrombophilia Stroke (< 1 month) Elective arthroplasty Hip, pelvis, or leg fracture Acute spinal cord injury (< 1 month) Prophylaxis Regimen: Total Risk Factor Score Risk Level Prophylaxis Regimen 0-1 Low Early ambulation 2 Moderate Order ONE of the following: *Sequential Compression Device (SCD) *Heparin 5000 units SQ BID 3-4 Higher Order ONE of the following medications: *Heparin 5000 units SQ TID *Enoxaparin/Lovenox 40 mg SQ daily (WT < 150 kg, CrCl > 30 mL/min) *Enoxaparin/Lovenox 30 mg SQ daily (WT < 150 kg, CrCl > 10-29 mL/min) *Enoxaparin/Lovenox 30 mg SQ BID (WT < 150 kg, CrCl > 30 mL/min) AND/OR *Sequential Compression Device (SCD) 5 or more Highest Order ONE of the following medications: *Heparin 5000 units SQ TID (Preferred with Epidurals) *Enoxaparin/Lovenox 40 mg SQ daily (WT < 150 kg, CrCl > 30 mL/min) *Enoxaparin/Lovenox 30 mg SQ daily (WT < 150 kg, CrCl > 10-29 mL/min) *Enoxaparin/Lovenox 30 mg SQ BID (WT < 150 kg, CrCl > 30 mL/min) AND *Sequential Compression Device (SCD) Assessment and Plan Plan COPD with exacerbation Acute respiratory failure oxygen saturation of 87% on admission Duo nebs, Solu-Medrol, taper as tolerated Bilateral lower extremity edema to Doppler ultrasound. Check BNP History of A. fib rate controlled continue home medications Restart home medications as appropriate DVT prophylaxis Eliquis H&P: Quality VTE Deep Vein Thrombosis/Pulmonary Embolism Present on Admission: No
[2018-03-27] MEDS: Acetaminophen 325 MG Tablet PO PRN (13:52)
[2018-03-28] MEDS: MethylPREDNISolone Sod Succinate Inj 40 MG/ML Vial IV.PUSH SCH ×4 (00:26→21:04)
[2018-03-28] MEDS: Sod Chloride 0.9% Inj 1,000 ML IV.CONT SCH ×2 (05:46→17:14)
[2018-03-28] MEDS: Budesonide-Formoterol 160/4.5 MCG 6 GM Inhaler INH SCH ×2 (08:08→21:26)
--- NOTE | 2018-03-28 08:44 | US ---
EXAM DATE: 03/28/2018 8:39 AM EST AGE/SEX: 77 years / Male INDICATIONS: Leg swelling. CLINICAL DATA: This is the patient's initial encounter. Patient reports that signs and symptoms have been present for 2 days and indicates a pain score of 0/10. MEDICAL/SURGICAL HISTORY: Asthma. Hypertension. Congestive heart failure. COPD. Abnormal hea rt rhythm. Diabetes. Pneumonia. HIV. DVT. Cholecystectomy. Tonsillectomy. Adenoidectomy. Knee surge ry. Back surgery. COMPARISON: No prior exams available for comparison. TECHNIQUE: Venous ultrasound of both lower extremities was performed from the inguinal ligament to t he proximal calf. Real-time, color Doppler and spectral tracing, compression and augmentation techni ques were used. FINDINGS: Right Leg: Normal compression of the deep venous system from the inguinal region to the proximal manisha f. No echogenic clot is seen. Normal response of the venous system to augmentation and respiration. Left Leg: Normal compression of the deep venous system from the inguinal region to the proximal calf . No echogenic clot is seen. Normal response of the venous system to augmentation and respiration. Other: None. CONCLUSION: 1. The study is negative for bilateral lower extremity deep venous thrombosis. Electronically signed by: Leighton Herrera MD Board Certified Radiologist 03/28/2018 8:43 AM EST
[2018-03-28 11:22] LABS: Potassium 3.8 meq/L (3.5-5.1)
[2018-03-28 11:25] LABS: Calcium 8.9 mg/dL (8.5-10.1)
[2018-03-28 11:26] LABS: Carbon Dioxide 25.3 meq/L (21.0-32.0); Magnesium 2.2 mg/dL (1.5-2.5)
[2018-03-28] MEDS: Acetaminophen 325 MG Tablet PO PRN (11:28)
[2018-03-28 11:29] LABS: Phosphorus 2.4 mg/dL (2.5-4.9)
--- NOTE | 2018-03-28 11:53 | P.PNIM ---
Subjective Interval history: In the chair. Patient has his cpap at bedside. Patient is still with wheezing. Still sob. No fever or chills. No nausea, vomiting diarrhea or constipation. With generalized weakness. Physical Exam Vital signs: Last Vital Signs Temp 96.8 F L 03/28/18 08:00 Pulse 89 03/28/18 09:30 Resp 20 03/28/18 09:30 BP 154/99 H 03/28/18 08:00 Pulse Ox 98 03/28/18 08:00 Intake & Output 03/26/18 03/27/18 03/28/18 03/29/18 06:59 06:59 06:59 06:59 Intake Total 480 / 480 4125 / 4125 Output Total 200 / 200 Balance 480 / 480 3925 / 3925 Weight 121 kg 122.2 kg Narrative: GENERAL: Pleasant 77-year-old male, obese, with some shortness of breath. CARDIOVASCULAR: Irregular rate and rhythm. RESPIRATORY: No accessory muscle use. Decreased breath sounds bilaterally. Scattered wheezing GASTROINTESTINAL: Abdomen soft, non-tender, nondistended. Hepatic and splenic margins not palpable. MUSCULOSKELETAL: Extremities without clubbing, cyanosis. Bilateral plus lower extremity edema. NEUROLOGICAL: Awake and alert. No obvious cranial nerve deficits. Motor grossly within normal limits. Five out of 5 muscle strength in the arms and legs. Normal speech. PSYCHIATRIC: Appropriate mood and affect; insight and judgment normal. Results Labs CBC & Chem 7: 03/27/18 08:50 03/28/18 10:30 Imaging Imaging: Impressions Venous Doppler Study 03/28/18 00:00 CONCLUSION: 1. The study is negative for bilateral lower extremity deep venous thrombosis. Assessment and Plan Plan COPD with exacerbation Acute respiratory failure oxygen saturation of 87% on admission Duo nebs, Solu-Medrol, taper as tolerated Add IS, Acapella Bilateral lower extremity edema to Doppler ultrasound. Check BNP History of A. fib rate controlled continue home medications Restart home medications as appropriate LE edema, Oed[place] US LE no DVT . BNP is in 150s , patient says he had a recent 2D ECHO with his cardiology Dr and was told is fairly normal. Will follow up with his cardio Dr Generalized weakness. physical deconditioning. Consult PT. Check lytes, mag, phos, B12, vit D DVT prophylaxis Eliquis Patient needs O2 walk test at [place] Progress Note: Quality VTE Deep Vein Thrombosis/Pulmonary Embolism Present on Admission: No
[2018-03-28] MEDS ORDERED: Potassium Phosphate 500 MG Soluble Tablet PO ONE (14:03)
[2018-03-29] MEDS: Sod Chloride 0.9% Inj 1,000 ML IV.CONT SCH ×2 (01:39→13:49)
[2018-03-29] MEDS: MethylPREDNISolone Sod Succinate Inj 40 MG/ML Vial IV.PUSH SCH ×2 (03:32→11:15)
[2018-03-29] MEDS: Budesonide-Formoterol 160/4.5 MCG 6 GM Inhaler INH SCH (08:04)
[2018-03-29] MEDS ORDERED: hydroCHLOROthiazide 25 MG Tablet PO SCH (10:00)
[2018-03-29 10:49] LABS: Baso % (Auto) 0.1 % (0.0-2.0); Hematocrit 36.1 % (39.0-51.0); Hemoglobin 11.8 gm/dL (13.0-17.0); Lymph # (Auto) 0.4 th/mm3 (1.0-4.8); Lymph % (Auto) 3.5 % (9.0-44.0); Mean Corpuscular HGB Conc 32.7 % (32.0-36.0); Mean Corpuscular Hemoglobin 30.3 pg (27.0-34.0); Mean Corpuscular Volume 92.5 fL (80.0-100.0); Mean Platelet Volume 8.6 fL (7.0-11.0); Mono # (Auto) 0.4 th/mm3 (0.0-0.9); Mono % (Auto) 3.9 % (0.0-8.0); Neut # (Auto) 9.3 th/mm3 (1.8-7.7); Neut % (Auto) 92.5 % (16.0-70.0); Platelet Count 227 th/mm3 (150-450); Red Blood Count 3.91 mil/mm3 (4.50-5.90); Red Cell Distribution Width 14.6 % (11.6-17.2); White Blood Count 10.1 th/mm3 (4.0-11.0)
[2018-03-29 10:57] LABS: Potassium 4.1 meq/L (3.5-5.1)
[2018-03-29 11:02] LABS: Calcium 8.5 mg/dL (8.5-10.1); Carbon Dioxide 27.6 meq/L (21.0-32.0)
--- NOTE | 2018-03-29 15:09 | P.PNIM ---
Subjective Interval history: Patient says he is feeling well. Would like to go home. Denies any chest pain or shortness of breath. Says he would like to follow-up with Dr. Coleman as outpatient. Physical Exam Vital signs: Vital Signs 03/28/18 16:00 03/28/18 20:00 03/28/18 21:09 Temperature 96.6 F L 96.4 F L Pulse Rate 68 87 77 Respiratory Rate 20 18 22 Blood Pressure 160/86 H 138/86 Pulse Oximetry 93 L 97 98 Pulse Oximetry [Exertion on Room Air] Pulse Oximetry [Resting on Room Air] 03/29/18 00:00 03/29/18 04:00 03/29/18 04:27 Temperature 96.6 F L 96.5 F L Pulse Rate 86 78 59 L Respiratory Rate 18 18 20 Blood Pressure 186/88 H 125/82 Pulse Oximetry 93 L 95 Pulse Oximetry [Exertion on Room Air] Pulse Oximetry [Resting on Room Air] 03/29/18 08:00 03/29/18 09:26 03/29/18 12:00 Temperature 98.6 F 96.6 F L Pulse Rate 63 93 H 65 Respiratory Rate 16 20 16 Blood Pressure 164/86 H 168/92 H Pulse Oximetry 97 96 98 Pulse Oximetry [Exertion on Room Air] Pulse Oximetry [Resting on Room Air] 03/29/18 14:18 03/29/18 14:19 Temperature Pulse Rate 58 L Respiratory Rate 20 Blood Pressure Pulse Oximetry Pulse Oximetry [Exertion on Room Air] 94 L Pulse Oximetry [Resting on Room Air] 95 Intake & Output 03/28/18 03/29/18 03/29/18 18:59 06:59 18:59 Intake Total 1920 / 1920 1480 / 1480 700 / 700 Output Total 200 / 200 Balance 1920 / 1920 1280 / 1280 700 / 700 Weight 122.2 kg Intake: IV 900 / 900 1000 / 1000 700 / 700 NS Inj 1,000 ML @ 100 mls/hr IV 900 / 900 1000 / 1000 700 / 700 .CONT .Q10H ABHIJIT Rx#:[id number] Oral 1020 / 1020 480 / 480 Output: Urine 200 / 200 Other: # Voids 6 2 # Bowel Movements 4 Narrative: GENERAL: Patient sitting up in chair at bedside. Appears comfortable. Breathing comfortably. SKIN: Warm and dry. HEAD: Normocephalic. EYES: No scleral icterus. No injection or drainage. NECK: Supple, trachea midline. No JVD. CARDIOVASCULAR: Regular rate and rhythm without murmurs, gallops, or rubs. RESPIRATORY: Breath sounds equal bilaterally. No accessory muscle use. GASTROINTESTINAL: Abdomen soft, non-tender, nondistended. MUSCULOSKELETAL: No cyanosis. Trace edema, which he says is normal for him. BACK: Nontender without obvious deformity. No CVA tenderness. Results - Labs CBC & Chem 7: 03/29/18 09:59 03/29/18 09:59 Laboratory Results - last 24 hr 03/29/18 03/29/18 09:59 09:59 CBC w Diff Auto diff final WBC 10.1 RBC 3.91 L Hgb 11.8 L Hct 36.1 L MCV 92.5 MCH 30.3 MCHC 32.7 RDW 14.6 Plt Count 227 MPV 8.6 Neut % (Auto) 92.5 H Lymph % (Auto) 3.5 L [place] % (Auto) 3.9 Eos % (Auto) 0.0 Baso % (Auto) 0.1 Neut # (Auto) 9.3 H Lymph # (Auto) 0.4 L [place] # (Auto) 0.4 Eos # (Auto) 0.0 Baso # (Auto) 0.0 WBC Differential . Differential Comment . Sodium 143 Potassium 4.1 Chloride 108 H Carbon Dioxide 27.6 Anion Gap 7 BUN 18 Creatinine 1.20 Estimated GFR 72 L Random Glucose 159 H Calcium 8.5 Assessment and Plan - Plan //COPD with exacerbation //Acute respiratory failure oxygen saturation of 87% on admission Duo nebs, Solu-Medrol, taper as tolerated Add IS, Acapella //Bilateral lower extremity edema to Doppler ultrasound. Check BNP //History of A. fib rate controlled continue home medications Restart home medications as appropriate //LE edema, Oedered US LE no DVT . BNP is in 150s , patient says he had a recent 2D ECHO with his cardiology Dr and was told is fairly normal. Will follow up with his cardio Dr //Generalized weakness. physical deconditioning. = Patient very eager to go home. Weakness improving. //DVT prophylaxis Eliquis Patient needs O2 walk test at [facility] -past. Discussed Condition With: Patient, nurse, physical therapist who will see patient prior to discharge. Discharge Planning: PT evaluation
--- NOTE | 2018-03-29 15:11 | P.DS ---
Date of admission: 03/26/18 21:58 Primary care physician: UNKNOWN Brief History from admission: Patient is a very pleasant 77-year-old male with past medical history of COPD, congestive heart failure, diabetes, recurrent pneumonia recent admission, HIV, PE and DVT, history of IV drug use. The patient complained of cough or wheezing. He denies chest pain, fever sputum production, palpitations diaphoresis. No nausea or vomiting. Denies abdominal pain. No urinary complaints. Patient also has noted his low more swollen than usual. Not coughing much however feels his leg is congested. DS: Summary Hospital Course: //COPD with exacerbation //Acute respiratory failure oxygen saturation of 87% on admission Duo nebs, Solu-Medrol, taper as tolerated Add IS, Acapella //Bilateral lower extremity edema to Doppler ultrasound. Check BNP //History of A. fib rate controlled continue home medications Restart home medications as appropriate //LE edema, Oedered US LE no DVT . BNP is in 150s , patient says he had a recent 2D ECHO with his cardiology Dr and was told is fairly normal. Will follow up with his cardio Dr //Generalized weakness. physical deconditioning. = Patient very eager to go home. Weakness improving. //DVT prophylaxis Eliquis Patient needs O2 walk test at [facility]. Discussed Condition With: Patient, nurse, physical therapist who will see patient prior to discharge. - Time Spent with Patient Total time spent providing and/or coordinating discharge services: Greater than 30 minutes - Quality: VTE Deep Vein Thrombosis/Pulmonary Embolism Present on Admission: No Exam Vital signs: Vital Signs 03/28/18 16:00 03/28/18 20:00 03/28/18 21:09 Temperature 96.6 F L 96.4 F L Pulse Rate 68 87 77 Respiratory Rate 20 18 22 Blood Pressure 160/86 H 138/86 Pulse Oximetry 93 L 97 98 Pulse Oximetry [Exertion on Room Air] Pulse Oximetry [Resting on Room Air] 03/29/18 00:00 03/29/18 04:00 03/29/18 04:27 Temperature 96.6 F L 96.5 F L Pulse Rate 86 78 59 L Respiratory Rate 18 18 20 Blood Pressure 186/88 H 125/82 Pulse Oximetry 93 L 95 Pulse Oximetry [Exertion on Room Air] Pulse Oximetry [Resting on Room Air] 03/29/18 08:00 03/29/18 09:26 03/29/18 12:00 Temperature 98.6 F 96.6 F L Pulse Rate 63 93 H 65 Respiratory Rate 16 20 16 Blood Pressure 164/86 H 168/92 H Pulse Oximetry 97 96 98 Pulse Oximetry [Exertion on Room Air] Pulse Oximetry [Resting on Room Air] 03/29/18 14:18 03/29/18 14:19 Temperature Pulse Rate 58 L Respiratory Rate 20 Blood Pressure Pulse Oximetry Pulse Oximetry [Exertion on Room Air] 94 L Pulse Oximetry [Resting on Room Air] 95 Intake & Output 03/28/18 03/29/18 03/29/18 18:59 06:59 18:59 Intake Total 1920 / 1920 1480 / 1480 700 / 700 Output Total 200 / 200 Balance 1920 / 1920 1280 / 1280 700 / 700 Weight 122.2 kg Intake: IV 900 / 900 1000 / 1000 700 / 700 NS Inj 1,000 ML @ 100 mls/hr IV 900 / 900 1000 / 1000 700 / 700 .CONT .Q10H ABHIJIT Rx#:[id number] Oral 1020 / 1020 480 / 480 Output: Urine 200 / 200 Other: # Voids 6 2 # Bowel Movements 4 Results Procedures completed during hospitalization: No invasive procedures. Labs on day of discharge: Labs from last 24 hours 03/29/18 03/29/18 09:59 09:59 CBC w Diff Auto diff final WBC 10.1 RBC 3.91 L Hgb 11.8 L Hct 36.1 L MCV 92.5 MCH 30.3 MCHC 32.7 RDW 14.6 Plt Count 227 MPV 8.6 Neut % (Auto) 92.5 H Lymph % (Auto) 3.5 L [place] % (Auto) 3.9 Eos % (Auto) 0.0 Baso % (Auto) 0.1 Neut # (Auto) 9.3 H Lymph # (Auto) 0.4 L [place] # (Auto) 0.4 Eos # (Auto) 0.0 Baso # (Auto) 0.0 WBC Differential . Differential Comment . Sodium 143 Potassium 4.1 Chloride 108 H Carbon Dioxide 27.6 Anion Gap 7 BUN 18 Creatinine 1.20 Estimated GFR 72 L Random Glucose 159 H Calcium 8.5 - Impressions ITS Impressions Chest X-Ray 03/26/18 19:24 CONCLUSION: The lungs are clear. Interval resolution of left lower lung infiltrate. Venous Doppler Study 03/28/18 00:00 CONCLUSION: 1. The study is negative for bilateral lower extremity deep venous thrombosis. Discharge Plan - Discharge Disposition Patient Disposition: 01 Discharge Home - Discharge Condition Condition: Stable - Discharge Order Discharge Orders: Discharge Order (Routine); Ordered 03/29/18 Ordered By: Kenney Ingram - Discharge Details Anticipated Discharge Date: 03/29/18 - Physicians Team Primary Care Provider: UNKNOWN, Attending Provider: Kenney Ingram Other Providers: [employer]Insurance
[2018-03-29] MEDS ORDERED: predniSONE 20 MG Tablet PO SCH (21:00)
== END 2018-03-29 16:21 | disposition home or self-care (01) ==
LOC: PHED 19:17 → PHEDA 19:17 → PH3 03-27 00:03 → UNDODISOB 03-29 14:07
PROVIDERS: ADMIT Internal Medicine; ATTEND Internal Medicine
CPT/HCPCS: 71010; 71045; 80048; 80053; 82306; 82607; 83520; 83735; 83880; 84100; 84484; 85025; 90774; 93005; 93970; 94150; 94618; 94620; 94640; 94664; 94665; 94667; 94668; 96361; 96374; 96376; 97161; 99285; C8952; G0378; G8987; G8988; J2920; J2930; J7030